=== PATIENT | female | born 1975 ===

== ENCOUNTER 2024-07-23 10:24 | Inpatient (IN) | payer OTHER ==
[~2024-07-23] VITALS: Ht 149.9 cm; Wt 57.4 kg
[2024-07-23] VITALS (75 sets, daily range): BP systolic 103–141; BP diastolic 59–68; PULSE 43–45; TEMP 98–98.4; O2SAT 95–100
[2024-07-23] MEDS ORDERED: COLACE 100100 MG/CAP PO (11:08)
[2024-07-23] MEDS ORDERED: PROZAC 20MG20 MG PO (11:08)
[2024-07-23] MEDS ORDERED: NATURAL IRON65 MG PO (11:08)
[2024-07-23] MEDS ORDERED: Ondansetron 4 MG/2 ML VIAL IV PRN (11:15)
[2024-07-23] MEDS ORDERED: Acetaminophen 500 MG TAB PO PRN (11:15)
[2024-07-23] MEDS ORDERED: Polyethylene Glycol 3350 17 GM PDS PO PRN (11:15)
[2024-07-23] MEDS ORDERED: Iohexol 300 - 100 ML VIAL IV ONE (11:28)
[2024-07-23] MEDS ORDERED: oxyCODONE 5 MG TAB PO PRN (11:30)
[2024-07-23] MEDS ORDERED: NS 100 ML IV SCH (11:30)
--- NOTE | 2024-07-23 12:51 | NUR ---
SW met with patient to complete initial assessment for discharge planning. Patient states that she lives on [address] with her active Rajat Chiang ([phone]) who is an ER physician on [address]. Patient and have 7 children, ranging in age from 4 day old, 4, 10, 11, 12, 13, & 21. Patient is covered by [employer]. Patient states that they just move to [place] for [facility] in April. She will use [facility] for medical care and pharmacy needs. Patient denies having any DME or DPOA and states her would make decisions in the event she could not. Patient plans to return home at discharge. Discharge plan: Home
[2024-07-23] MEDS ORDERED: Ibuprofen 800 MG TAB PO PRN (15:45)
[2024-07-24] VITALS (27 sets, daily range): BP systolic 98–146; BP diastolic 45–97; PULSE 41–61; TEMP 98–98.4; O2SAT 93–100
[2024-07-24 05:16] LABS: BASO # 0.1 K/mm3 (0.0-0.2); BASO % 0.9 % (0.0-2.0); EOS # 0.2 K/mm3 (0.0-0.7); EOS % 2.4 % (0.0-4.0); GRAN # 3.1 K/mm3 (1.4-6.5); GRAN % 45.5 % (42.2-75.2); HEMOGLOBIN 11.1 g/dl (12.5-16.0); LYMPH % 44.4 % (20.0-51.0); MEAN CELL VOLUME 93 fl (80.0-100.0); MEAN CORPUSCULAR HEMOGLOBIN 31 pg (27-31); MEAN CORPUSCULAR HGB CONC 33 g/dl (33.0-37.0); MEAN PLATELET VOLUME 9.4 fl (7.4-10.4); MONO # 0.4 K/mm3 (0.1-0.6); MONO % 5.9 % (1.7-9.3); PLATELET COUNT 283 K/mm3 (130-400); RED BLOOD COUNT 3.64 M/mm3 (4.10-5.30); REDCELL DISTRIBUTION WIDTH-CV 13.7 % (11.5-14.5)
[2024-07-24 05:30] LABS: HEMATOCRIT 33.7 % (37.0-47.0)
[2024-07-24 05:42] LABS: ALBUMIN 2.5 g/dL (3.5-5.0); BILIRUBIN,TOTAL 0.3 mg/dL (0.2-1.2); CALCIUM 8.9 mg/dL (8.4-10.2); CREATININE, serum 0.66 mg/dL (0.57-1.11); POTASSIUM 4.7 mEq/L (3.5-4.5); TOTAL PROTEIN 5.8 g/dl (6.2-8.1)
--- NOTE | 2024-07-24 07:00 | NUR ---
REPORT RECEIVED FROM GUSTAVO ROSALES. PT RESTING IN BED, VSS. NO DRIPS INFUSING AT THIS TIME. PT IS ALERT AND ORIENTED, DENIES NEEDS, CALL LIGHT IN REACH.
[2024-07-24] MEDS ORDERED: Docusate Sodium 100 MG CAP PO SCH (09:00)
[2024-07-24] MEDS ORDERED: FLUoxetine 20 MG CAP PO SCH (09:00)
[2024-07-24] MEDS ORDERED: LR 1,000 ML IV SCH (10:00)
[2024-07-24] MEDS ORDERED: ROXICODONE 55 MG/TAB PO (10:09)
[2024-07-24] MEDS ORDERED: IBU800 M1 PO (10:09)
[2024-07-24] MEDS ORDERED: TYLENOL 325MG325 MG PO (10:09)
--- NOTE | 2024-07-24 10:41 | NUR ---
PT AMBULATED IN ROOM W/ STEADY GAIT, PULSE RATE UP TO 58 DURING AMBULATION.
[2024-07-24] MEDS ORDERED: Glycopyrrolate 0.2 MG/ML 1 ML VIAL ONE (10:50)
[2024-07-24] MEDS ORDERED: Lidocaine PF 2% (20 MG/ML) 5 ML VIAL ONE (10:50)
--- NOTE | 2024-07-24 13:55 | NUR ---
PT FITTED W/ HOLTER MONITOR BY RESPIRATORY THERAPY. DISCHARGE PACKET GIVEN, ALL INSTRUCTIONS REVIEWED W/ PT. PT DC TO HOME W/ IN STABLE CONDITION.
== END 2024-07-24 15:55 | disposition home or self-care (01) | DRG 776 ==
LOC: ICU 10:24
PROVIDERS: ADMIT Internal Medicine
DX: O90.3 Peripartum cardiomyopathy (principal); J90 Pleural effusion, not elsewhere classified; O90.89 Other complications of the puerperium, not elsewhere classified; I08.1 Rheumatic disorders of both mitral and tricuspid valves; Z79.899 Other long term (current) drug therapy; Z23 Encounter for immunization
CPT/HCPCS: J1650; J2704; Q9967